=== PATIENT | male | born 1950 | race Caucasian/White ===

== ENCOUNTER 2017-02-15 10:59 | Day surgery (SDC) | payer OTHER ==
[~2017-02-15] VITALS: Ht 172.7 cm; Wt 77.1 kg
[~2017-02-15 10:59] MED LIST: ASPIR 8181 M1 PO; Atarax,Vistaril PO; CYMBALTA30 MG PO; Coumadin,Jantoven PO; FISH OIL 1,0001 EAC7 PO; LIPITOR10 MG PO; Lipitor PO; MECLIZINE HCL25 MG PO; MULTIPLE VITAM1 EACH PO; NEXIUM40 MG PO; PROBIOTIC1 EAC2 PO; SLEEP AID25 M1 PO; Ultram PO; VITAMIN D31000 UNI2 PO
[2017-02-15 11:23] VITALS: BP 150/73
[2017-02-15] MEDS ORDERED: NORCO 5/3251 TABLET PO (14:29)
[2017-02-15 15:03] VITALS: BP 180/88
[2017-02-15 16:00] VITALS: BP 158/78
== END 2017-02-15 16:25 | disposition home or self-care (01) ==
LOC: SDC 10:59
PROC: 0YU60JZ Supplement Left Inguinal Region with Synthetic Substitute, Open Approach (ICD-10-PCS; principal; 2017-02-15)
DX: K40.91 Unilateral inguinal hernia, without obstruction or gangrene, recurrent (principal); Z85.820 Personal history of malignant melanoma of skin; Z96.642 Presence of left artificial hip joint; K21.9 Gastro-esophageal reflux disease without esophagitis; E78.00 Pure hypercholesterolemia, unspecified; Z79.82 Long term (current) use of aspirin; Z85.828 Personal history of other malignant neoplasm of skin; Z80.3 Family history of malignant neoplasm of breast; Z82.0 Family history of epilepsy and other diseases of the nervous system; Z88.5 Allergy status to narcotic agent
CPT/HCPCS: C1781; J0690; J1885; J2250; J3010; S0020

== ENCOUNTER 2017-10-10 19:37 | Emergency (ER) | payer OTHER ==
[~2017-10-10] VITALS: Ht 172.7 cm; Wt 85.5 kg
[~2017-10-10 19:37] MED LIST changes: +NORCO 5/3251 TABLET PO
[2017-10-10 22:27] LABS: APPEARANCE SL.HAZY ((CLEAR)); BILIRUBIN NEGATIVE; BLOOD LARGE; COLOR AMBER ((YELLOW)); GLUCOSE (STRIP) NEGATIVE; KETONES NEGATIVE; LEUKOCYTES NEGATIVE; NITRITE POSITIVE; PROTEIN (STRIP) 100; SPECIFIC GRAVITY 1.017 (1.000-1.030)
[2017-10-10 22:43] LABS: BACTERIA RARE /HPF; CALCIUM OXALATE CRYSTALS 3+ /HPF; EPITHELIAL CELLS RARE /HPF; MUCUS TRACE /LPF; RED BLOOD CELLS TNTC /HPF (0-5); UCUL ADDED? YES; WHITE BLOOD CELLS 0-5 /HPF (0-5)
[2017-10-11 00:13] VITALS: BP 171/85
== END 2017-10-11 00:15 | disposition home or self-care (01) ==
LOC: RME 19:37 → EME 19:37 → RME 10-11 00:15
PROVIDERS: Physician Assistant Medical
DX: T83.091A Other mechanical complication of indwelling urethral catheter, initial encounter (principal); Z98.890 Other specified postprocedural states; K21.9 Gastro-esophageal reflux disease without esophagitis; Z85.46 Personal history of malignant neoplasm of prostate; Z96.642 Presence of left artificial hip joint; Z88.5 Allergy status to narcotic agent
CPT/HCPCS: 81003; 87086; 99281; 99283